=== PATIENT | male | born 1970 | race Caucasian/White ===

== ENCOUNTER 2022-09-13 13:54 | Emergency (ER) | payer SELFPAY ==
[2022-09-13 14:34] LABS: #Basophils 0.1 thou/uL (0.0-0.2); #Eosinphils 0.1 thou/uL (0.0-0.7); #Lymphocytes 1.3 thou/uL (1.20-3.40); #Monocytes 0.4 thou/uL (0.11-0.59); %Basophils 1.1 % (0.0-1.0); %Eosinophils 1.6 % (0.0-10.0); %Lymphocytes 26.8 % (21.0-51.0); %Monocytes 8.4 % (0.0-10.0); %Neutrophils 62.2 % (42.0-75.0); Hemoglobin 16.2 g/dL (14.0-18.0); Mean Corpuscular HGB CONC 34.1 g/dL (32.0-36.0); Mean Corpuscular Hemoglobin 31.8 pg (27.0-31.0); Mean Corpuscular Volume 93.3 fl (78.0-98.0); Mean Platelet Volume 9.5 fL (7.4-10.4); Platelet Count 154 10x3/uL (130-400); RBC Distribution Width 12.6 % (11.5-14.5); Red Blood Cell (RBC) Count 5.09 mill/uL (4.70-6.10); White Blood Cell (WBC) Count 4.9 10x3/uL (4.8-10.8)
[2022-09-13 14:42] LABS: ALT (SGPT) 23 U/L (8-55); AST (SGOT) 25 U/L (5-34); Albumin 4.4 g/dL (3.5-5.0); Alkaline Phosphatase 82 U/L (40-110); Anion Gap 11 mmol/L (10-20); BUN (Urea Nitrogen) 10 mg/dL (8.9-20.6); Bilirubin, Total 1.1 mg/dL (0.2-1.2); Calc. Creatinine Clearance 0 mL/min (70-130); Carbon Dioxide 29 mmol/L (22-29); Chloride 101 mmol/L (98-107); Estimated GFR 107; Globulin 2.5 g/dL (2.4-3.5); Glucose 95 mg/dL (70-105); Potassium 3.6 mmol/L (3.5-5.1); Protein, Total 6.9 g/dL (6.0-8.3); Sodium 137 mmol/L (136-145)
[2022-09-13] MEDS ORDERED: Lidocaine Viscous Sol 2% 15 ml UD Cup ONE (15:10)
[2022-09-13] MEDS ORDERED: Mag-Al 1200 mg/1200 mg/30 ML UDCUP ONE (15:10)
[2022-09-13] MEDS ORDERED: Acetaminophen 500 MG TAB ONE (15:10)
[2022-09-13 15:29] LABS: Bilirubin Negative (Negative); Blood, Urine Negative (Negative); Clarity Clear (Clear); Glucose, Urine (Dipstick) Normal (Negative); Ketone, Urine Negative (Negative); Leukocyte Negative Leu/uL (Negative); Nitrite Negative (Negative); Protein, Urine (Dipstick) Negative (Neg-Trace); Specific Gravity, Urine 1.004 (1.002-1.036); Urobilinogen Normal mg/dL (Less than 2)
== END 2022-09-13 16:47 | disposition home or self-care (01) ==
LOC: ERS 13:54
DX: R10.13 Epigastric pain (principal); N50.812 Left testicular pain
CPT/HCPCS: 36415; 74176; 76870; 80053; 81003; 85025; 93005; 93976

== ENCOUNTER 2024-04-26 10:05 | Outpatient (CLI) | payer OTHER | END 2024-04-26 10:06 | disposition home or self-care (01) | LOC: BICRAD 10:05 | PROVIDERS: ATTEND Nurse Practitioner Family | DX: M79.18 Myalgia, other site (principal); M25.551 Pain in right hip; M16.11 Unilateral primary osteoarthritis, right hip | CPT/HCPCS: 72170 ==